=== PATIENT | female | born 2000 | race Caucasian/White ===

== ENCOUNTER → 2022-08-10 13:36 | Outpatient (CLI) | payer OTHER, SELFPAY ==
[2022-08-10 14:36] LABS: COVID19 -Nasal RAPID Negative (Negative)
== END ==
PROVIDERS: PCP Family Medicine; Referring Provider Internal Medicine Cardiovascular Disease; Visit Provider Internal Medicine Cardiovascular Disease
DX: Z20.822 Contact with and (suspected) exposure to COVID-19 (principal)
CPT/HCPCS: 87635; C9803

== ENCOUNTER → 2022-08-19 14:21 | Outpatient (CLI) | payer OTHER, SELFPAY ==
[2022-08-19 14:51] LABS: COVID19 -Nasal RAPID Negative (Negative)
== END ==
PROVIDERS: Radiology Diagnostic Radiology; PCP Family Medicine; Referring Provider Internal Medicine Cardiovascular Disease; Visit Provider Internal Medicine Cardiovascular Disease
DX: Z20.822 Contact with and (suspected) exposure to COVID-19 (principal)
CPT/HCPCS: 87635; C9803

== ENCOUNTER → 2022-08-20 08:09 | Outpatient (CLI) | payer OTHER, SELFPAY ==
--- NOTE | 2022-08-20 09:41 | DI.ECHO.S_ITS ---
Interpretation Summary The ejection fraction is estimated to be 55-60%. Diastolic parameters suggest probable normal left ventricular diastolic function and normal filling pressures. The right ventricle is normal in size and function. There is mild tricuspid regurgitation. The right ventricular systolic pressure is estimated to be at least 19 mmHg based on an estimated right atrial pressure of 3 mm Hg. Procedure: A two-dimensional transthoracic echocardiogram with color flow and Doppler was performed. The study quality was technically adequate. There is no prior echocardiogram noted for this patient. The patient was in sinus rhythm with heart rates between 58-74 bpm during the exam. Left Ventricle: The left ventricle is normal in size and wall thickness. The ejection fraction is estimated to be 55-60%. Diastolic parameters suggest probable normal left ventricular diastolic function and normal filling pressures. Right Ventricle: The right ventricle is normal in size and function. Atria: The left atrial size is normal. Right atrial size is normal. There is no Doppler evidence for an interatrial shunt. Mitral Valve: The mitral valve is normal in structure and function. There is trace mitral regurgitation. Aortic Valve: The aortic valve is trileaflet. The aortic valve opens well. There is no aortic valve stenosis. No aortic regurgitation is present. Tricuspid Valve: The tricuspid valve is normal in structure and function. There is mild tricuspid regurgitation. The right ventricular systolic pressure is estimated to be at least 19 mmHg based on an estimated right atrial pressure of 3 mm Hg. Pulmonic Valve: The pulmonic valve leaflets are thin and pliable; valve motion is normal. There is no pulmonic valvular regurgitation. Great Vessels: The aortic root is normal size. The dimensions of the ascending aorta are normal. The IVC is of normal diameter and collapses greater than 50% with a sniff. This suggests a low right atrial pressure of 3 mm Hg. Pericardium/ Pleura There is no pericardial effusion. There is no pleural effusion. MMode/2D Measurements & Calculations LVIDd: 4.3 cm LVOT diam: 2.0 cm LVIDs: 3.2 cm Ao root diam: 2.5 cm FS: 25.6 % asc Aorta Diam: 2.3 cm EPSS: 0.49 cm Ao Arch Diam (Prox Trans): 2.1 cm IVSd: 0.54 cm LVPWd: 0.78 cm LV aguilar. diameter/BSA (cm/m^2): 2.8 LV sys. diameter/BSA (cm/m^2): 2.1 LA A2 area: 15.4 cm2 RA long axis: 3.3 cm LA A4 area: 11.1 cm2 RA area: 9.3 cm2 LA length (vol): 4.1 cm RA vol: 22.1 ml LA vol: 35.3 ml RA : 14.5 ml/m2 LA vol index: 23.1 ml/m2 IVC diam: 1.5 cm RVD1 (basal): 2.8 cm RVD2 (mid): 3.1 cm TAPSE: 1.7 cm Doppler Measurements & Calculations Ao V2 max: 108.5 cm/sec LVOT Max Wayne: 79.2 cm/sec Ao V2 mean: 69.1 cm/sec LV V1 max P.5 mmHg Ao max P.7 mmHg LV V1 VTI: 16.5 cm Ao mean P.3 mmHg SHOBHA(I,D): 2.5 cm2 Ao V2 VTI: 20.8 cm SHOBHA(V,D): 2.3 cm2 sev ratio: 0.79 SHOBHA indexed to BSA (cm^2/m^2): 1.6 MV E max wayne: 83.1 cm/sec TR max wayne: 201.4 cm/sec MV A max wayne: 48.6 cm/sec TR max P.2 mmHg MV E/A: 1.7 PA V2 max: 84.6 cm/sec Med Peak E' Wayne: 14.1 cm/sec PA V2 mean: 58.3 cm/sec E/E' med: 5.9 PA mean P.5 mmHg Lat Peak E' Wayne: 14.4 cm/sec PA pr(Accel): 27.6 mmHg E/E' lat: 5.8 E/e' average: 5.8 MV dec time: 0.21 sec SV(LVOT): 51.6 ml Reading Physician:12:39 PM
--- NOTE | 2022-08-20 21:24 | DI.NM.S_ITS ---
DATE OF SERVICE: 08/20/2022 PROCEDURE: Exercise stress test. INDICATION: Dizziness, syncope, chest tightness. CARDIAC STRESS: The patient underwent exercise stress test under the supervision of an attending staff. She walked on Hans protocol for 9 minutes and 32 seconds, maximum heart rate of 186 percent achieved, which was 93 percent of target heart rate. Resting blood pressure 92/58 and peak blood pressure 155/60. MARYCRUZ positive 13 percent. Achieved 10.1 METs of workload. Baseline rhythm was sinus with mild sinus bradycardia. During exercise, there were no convincing ischemic changes seen. No significant arrhythmias seen. The patient developed chest tightness on a scale of 1 to 10, 4 in intensity about 8 minutes into the exercise and peak up to 6 in intensity. It got slowly resolved in recovery at about 6 minutes and also improved with deep breathing. During chest tightness, no ischemic changes or arrhythmias seen. CONCLUSION: Exercise stress test is negative for inducible ischemia or significant arrhythmias. Normal hemodynamic response. The patient had chest tightness, which started about 8 minutes into the exercise and got resolved around 6 minutes and into the recovery and with deep breathing. No ischemic changes or significant arrhythmias during chest tightness. Normal hemodynamic response. Overall, low-risk exercise stress test. Correlate clinically. Sarai Lazo - MICHELLE/zeynep/franchesca doc#: [id number]/job#: [id number] dd: 08/20/2022 16:59:00 dt: 08/20/2022 21:03:00 DICTATING /COPIES TO: Niki Fernando MD COPIES MNE: ACM;
== END ==
LOC: ECHO 08:10
PROVIDERS: PCP Family Medicine; Referring Provider Internal Medicine Cardiovascular Disease; Visit Provider Internal Medicine Cardiovascular Disease
DX: R42 Dizziness and giddiness (principal); R55 Syncope and collapse; R07.89 Other chest pain; I07.1 Rheumatic tricuspid insufficiency
CPT/HCPCS: 93017; 93306